=== PATIENT | female | born 1965 | race Caucasian/White ===

== ENCOUNTER 2025-01-14 18:05 | Emergency (ER) | payer MEDICAID ==
[~2025-01-14] VITALS: Ht 165.1 cm; Wt 75.0 kg
[2025-01-14 18:19] VITALS: TEMP 36.9; O2SAT 71
[2025-01-14] MEDS ORDERED: CEFP200T13 MT (20:53)
[2025-01-14] MEDS ORDERED: SULF1TAB48 MT (20:53)
[2025-01-14 21:32] VITALS: BP 138/71; PULSE 80; RESP 18; O2SAT 71
== END 2025-01-14 21:34 | disposition home or self-care (01) ==
LOC: ER 18:13
DX: L03.213 Periorbital cellulitis (principal); I10 Essential (primary) hypertension; E11.9 Type 2 diabetes mellitus without complications; Z90.710 Acquired absence of both cervix and uterus; Z98.890 Other specified postprocedural states
CPT/HCPCS: 99283